=== PATIENT | female | born 1960 | race Asian ===

== ENCOUNTER 2018-03-20 10:16 | Emergency (ER) | payer MEDICAID ==
[~2018-03-20] VITALS: Ht 139.7 cm; Wt 47.6 kg
[2018-03-20 10:21] VITALS: BP_SYST 123
[2018-03-20] MEDS ORDERED: MORPHINE 2 MG/ML INJ. SYRINGE IM ONE (10:45)
[2018-03-20] MEDS ORDERED: ONDANSETRON 4 MG ODT TAB PO ONE (10:45)
[2018-03-20 11:20] VITALS: BP_SYST 124
== END 2018-03-20 11:20 | disposition home or self-care (01) ==
LOC: SED 10:16
DX: M06.9 Rheumatoid arthritis, unspecified (principal)
CPT/HCPCS: 96372; 99283; J2270; Q0162

== ENCOUNTER 2018-07-19 15:31 | Emergency (ER) | payer MEDICAID ==
[~2018-07-19] VITALS: Ht 147.3 cm; Wt 49.9 kg
[2018-07-19 15:35] VITALS: BP_SYST 117
--- NOTE | 2018-07-19 15:38 | NUR ---
Patient triaged and placed in waiting room. VSS and patient appears in no acute distress at this time. Accompanied by NEPHEW, awaiting available bed, and MD notified of need for MSE.
--- NOTE | 2018-07-19 16:31 | NUR ---
PT BEING EVALUATED BY AYLIN NULL IN TRIAGE ROOM.
--- NOTE | 2018-07-19 16:40 | NUR ---
Pt AAOx4, non-armenian speaking, presents to ED c/o bilateral pain, swelling, and increased tear production to bilateral eyes x 2 weeks. Pt also c/o swelling to L elbow r/t rheumatoid arthritis. No other injuries/complaints per pt/noted. Will continue to monitor.
[2018-07-19] MEDS ORDERED: KETOROLAC TROMETHAMINE 30 MG VIAL IM ONE (16:45)
--- NOTE | 2018-07-19 17:15 | NUR ---
Medication administered. Pt tolerated well. No adverse reactions noted.
[2018-07-19 17:59] VITALS: BP_SYST 114
--- NOTE | 2018-07-19 17:59 | NUR ---
Patient given written and verbal discharge instructions and verbalizes understanding. ER CHILDR[facility] PRO[facility] COORDINATOR Ana Maria discussed with patient the results and treatment provided. Patient in stable condition. ID arm band removed. Rx of Loratadine, Patanol given. Patient educated on pain management and to follow up with PMD. Pain Scale 0. Opportunity for questions provided and answered. Medication side effect fact sheet provided.
== END 2018-07-19 17:59 | disposition home or self-care (01) ==
LOC: SED 15:31
DX: H10.13 Acute atopic conjunctivitis, bilateral (principal); M06.9 Rheumatoid arthritis, unspecified
CPT/HCPCS: 96372; 99283; J1885

== ENCOUNTER 2018-08-30 21:50 | Emergency (ER) | payer MEDICAID ==
[~2018-08-30] VITALS: Ht 157.5 cm; Wt 46.3 kg
[2018-08-30 21:55] VITALS: BP_SYST 137
[2018-08-30 22:37] LABS: BASOPHILS % (AUTO) 0.4 % (0.0-2.0); EOSINOPHILS % (AUTO) 0.4 % (0.0-4.0); HEMATOCRIT 35.1 % (36-48); HEMOGLOBIN 11.6 g/dL (12.0-16.0); LYMPHOCYTES # (AUTO) 0.7 K/uL (1.0-5.5); LYMPHOCYTES % (AUTO) 34.4 % (20.5-51.5); MEAN CORPUSCULAR HEMOGLOBIN 29 pg (27-31); MEAN CORPUSCULAR HGB CONC 33 % (32-36); MEAN CORPUSCULAR VOLUME 86 fL (79.0-98.0); MONOCYTES # (AUTO) 0.3 K/uL (0.0-1.0); MONOCYTES % (AUTO) 14.2 % (1.7-9.3); PLATELET COUNT (AUTO) 307 K/uL (130-430); RED BLOOD CELL COUNT(AUTO) 4.08 MIL/uL (4.2-6.2); RED CELL DISTRIBUTION WIDTH 13.7 % (9.0-15.0)
[2018-08-30 22:46] LABS: CREATININE 0.7 mg/dL (0.55-1.30); POTASSIUM 3.5 mmol/L (3.5-5.1)
[2018-08-30 22:52] LABS: ALBUMIN 2.7 g/dL (3.4-4.8); INR 0.9 (0.8-1.2); PROTHROMBIN TIME 9.6 SECS (9.5-12.5); TOTAL BILIRUBIN 0.3 mg/dL (0.0-1.0)
[2018-08-30 23:19] LABS: NEUTROPHILS % (AUTO) 50.6 % (40.0-70.0)
[2018-08-31] MEDS ORDERED: ENOXAPARIN SODIUM 60 MG/0.6 ML SYRINGE SUBCUT ONE
[2018-08-31 03:26] VITALS: BP_SYST 132
== END 2018-08-31 03:26 | disposition short-term general hospital (02) ==
LOC: SED 21:50
DX: I82.432 Acute embolism and thrombosis of left popliteal vein (principal)
CPT/HCPCS: 36415; 80053; 85025; 85379; 85610; 85730; 93971; 96372; 99285; J1650

== ENCOUNTER 2020-02-27 09:28 | Emergency (ER) | payer MEDICAID, SELFPAY ==
[~2020-02-27] VITALS: Ht 152.4 cm; Wt 46.3 kg
[2020-02-27 09:32] VITALS: BP_SYST 115
[2020-02-27 09:47] VITALS: BP_SYST 115
== END 2020-02-27 10:01 | disposition home or self-care (01) ==
LOC: SED 09:28
DX: J32.9 Chronic sinusitis, unspecified (principal); B97.89 Other viral agents as the cause of diseases classified elsewhere; Z20.828 Contact with and (suspected) exposure to other viral communicable diseases
CPT/HCPCS: 99283; U0003; C9803-CS

== ENCOUNTER 2020-12-21 10:23 | Emergency (ER) | payer MEDICAID, SELFPAY ==
[~2020-12-21] VITALS: Ht 154.9 cm; Wt 45.4 kg
[2020-12-21 11:12] VITALS: BP_SYST 132
[2020-12-21] MEDS ORDERED: TETRACAINE HCL/PF 0.5% OPHTHALMIC DROPS 4 ML OP ONE (11:45)
[2020-12-21] MEDS ORDERED: FLUORESCEIN SODIUM 1 MG OPHTHALMIC STRIP OP ONE (11:45)
[2020-12-21] MEDS ORDERED: OFLO5DRO6 EACH EYE (12:43)
[2020-12-21 13:07] VITALS: BP_SYST 132
== END 2020-12-21 13:08 | disposition home or self-care (01) ==
LOC: SED 10:23
DX: H10.33 Unspecified acute conjunctivitis, bilateral (principal)
CPT/HCPCS: 99283

== ENCOUNTER 2023-03-01 21:56 | Emergency (ER) | payer MEDICAID ==
[~2023-03-01] VITALS: Ht 149.9 cm; Wt 47.6 kg
[~2023-03-01 21:56] MED LIST: OFLO5DRO6 EACH EYE
[2023-03-01 22:10] VITALS: BP_SYST 115; PULSE 80; RESP 18; TEMP 98.3
== END 2023-03-01 23:38 | disposition home or self-care (01) ==
LOC: SED 21:56
DX: H54.7 Unspecified visual loss (principal); I10 Essential (primary) hypertension; E11.9 Type 2 diabetes mellitus without complications; Z79.899 Other long term (current) drug therapy
CPT/HCPCS: 99281

== ENCOUNTER 2023-08-08 10:17 | Inpatient (IN) | payer MEDICAID ==
[~2023-08-08] VITALS: Ht 149.9 cm; Wt 43.5 kg
[2023-08-08 10:28] VITALS: BP_SYST 116; PULSE 105; RESP 18; TEMP 98.6
[2023-08-08 11:06] LABS: HEMATOCRIT 29.9 % (36-48); MEAN CORPUSCULAR HEMOGLOBIN 27 pg (27-31); MEAN CORPUSCULAR HGB CONC 33 % (32-36); MEAN CORPUSCULAR VOLUME 82 fL (79.0-98.0); PLATELET COUNT (AUTO) 168 K/uL (130-430); RED BLOOD CELL COUNT(AUTO) 3.65 MIL/uL (4.2-6.2); RED CELL DISTRIBUTION WIDTH 17.7 % (9.0-15.0)
[2023-08-08 11:09] LABS: CALCIUM 8.4 mg/dL (8.4-11.0); CREATININE 0.67 mg/dL (0.55-1.30); POTASSIUM 3.7 mmol/L (3.5-5.1)
[2023-08-08] MEDS: QUEtiapine FUMARATE 25 MG TABLET PO SCH (11:15)
[2023-08-08 11:16] LABS: WHITE BLOOD COUNT (AUTO) 1.1 K/uL (4.8-10.8)
[2023-08-08 12:00] LABS: ATYPICAL LYMPHOCYTES % 17 % (0-0); BAND % (MANUAL) 2 % (0-6); LYMPHOCYTES % (MANUAL) 46 % (20-46)
[2023-08-08 12:01] LABS: ANISOCYTOSIS 1+; BASOPHILS % (MANUAL) 0 % (0-2); EOSINOPHILS % (MANUAL) 5 % (0-7); HYPOCHROMASIA 1+; MONOCYTES % (MANUAL) 15 % (0-11); PLATELET ESTIMATE ADEQUATE (ADEQUATE); SMUDGE CELLS FEW
[2023-08-08 12:02] LABS: ROULEAU 1+
[2023-08-08] MEDS: PIPERACILLIN/TAZOBACTAM 2.25 GM in NS 50 ML IV ONE (12:07)
[2023-08-08] MEDS ORDERED: PIPERACILLIN/TAZOBACTAM 2.25 GM VIAL IV ONE (12:08)
[2023-08-08] MEDS ORDERED: CLOP75TA32 PO (12:15)
[2023-08-08] MEDS ORDERED: PHEDM120 PO (12:15)
[2023-08-08] MEDS ORDERED: ROSU20TA73 PO (12:15)
[2023-08-08] MEDS ORDERED: ASPI-1393 PO (12:15)
[2023-08-08] MEDS ORDERED: ACETAMINOPHEN 500 MG TABLET PO PRN (13:30)
[2023-08-08] MEDS: ACETAMINOPHEN 500 MG TABLET PO PRN (13:46)
[2023-08-08 14:49] LABS: BILIRUBIN,URINE NEGATIVE (NEGATIVE); CLARITY/URINE CLEAR (CLEAR); COLOR,URINE YELLOW (YELLOW); GLUCOSE,URINE NEGATIVE (NEGATIVE); KETONES,URINE NEGATIVE (NEGATIVE); LEUKOCYTE ESTERASE ,URINE NEGATIVE (NEGATIVE); NITRITE, URINE NEGATIVE (NEGATIVE); PH,URINE 6.5 (5.0-8.0); PROTEIN URINE NEGATIVE (NEGATIVE); UROBILINOGEN,URINE 0.2 (0.2-1.0)
[2023-08-08 14:53] LABS: BLOOD, URINE TRACE (NEGATIVE)
[2023-08-08 15:07] LABS: BACTERIA,URINE RARE /HPF (None Seen); MUCUS,URINE 1+ /LPF (None Seen); WBC,URINE 0-3 /HPF (0-3)
[2023-08-08] MEDS: NACL 0.9% 1,000 ML IV ONE ×2 (15:16→15:57)
[2023-08-08] MEDS: IBUPROFEN 400 MG TABLET PO PRN (16:18)
[2023-08-08] MEDS: NACL 0.9% 1,000 ML IV SCH (18:45)
[2023-08-08] MEDS: PIPERACILLIN/TAZO 3.375/DEX-IS 50 ML IV SCH (20:17)
[2023-08-08] MEDS: VANCOMYCIN HCL 500 MG in NS 100 ML IV SCH (21:00)
[2023-08-08] MEDS ORDERED: IPRATROPIUM/ALBUTEROL SULFATE 3 ML AMPUL.NEB (DUONEB) INH PRN (21:45)
[2023-08-08] MEDS ORDERED: IPRATROPIUM/ALBUTEROL SULFATE 3 ML AMPUL.NEB (DUONEB) ONE (21:48)
[2023-08-08] MEDS ORDERED: NOREPINEPHRINE 4 MG/4 ML VIAL IV ONE (22:26)
[2023-08-08] MEDS: NOREPINEPHRINE BITARTRATE 4 MG in D5W 246 ML IV PRN (23:58)
[2023-08-09] MEDS: HEPARIN SODIUM,PORCINE 5,000 UNITS/ML VIAL SUBCUT SCH
[2023-08-09] MEDS: ACETAMINOPHEN 500 MG TABLET PO PRN (00:01)
[2023-08-09 00:24] LABS: INR 1.2 (0.8-1.2)
[2023-08-09] MEDS ORDERED: HEPARIN SODIUM,PORCINE 5,000 UNITS/ML VIAL ONE ×2 (00:49→22:22)
[2023-08-09 04:20] LABS: BASOPHILS % (AUTO) 0.2 % (0.0-2.0); EOSINOPHILS % (AUTO) 0.6 % (0.0-4.0); HEMATOCRIT 32.8 % (36-48); HEMOGLOBIN 10.8 g/dL (12.0-16.0); LYMPHOCYTES # (AUTO) 0.4 K/uL (1.0-5.5); MEAN CORPUSCULAR HEMOGLOBIN 27 pg (27-31); MEAN CORPUSCULAR HGB CONC 33 % (32-36); MEAN CORPUSCULAR VOLUME 81 fL (79.0-98.0); MONOCYTES # (AUTO) 0.4 K/uL (0.0-1.0); MONOCYTES % (AUTO) 40.9 % (1.7-9.3); NEUTROPHILS % (AUTO) 17.3 % (40.0-70.0); PLATELET COUNT (AUTO) 215 K/uL (130-430); RED BLOOD CELL COUNT(AUTO) 4.05 MIL/uL (4.2-6.2); RED CELL DISTRIBUTION WIDTH 17.8 % (9.0-15.0)
[2023-08-09 04:22] LABS: NEUTROPHILS # (AUTO) 0.2 K/uL (1.8-7.7)
[2023-08-09 04:31] LABS: ALBUMIN 2.1 g/dL (3.4-4.8); CALCIUM 7.5 mg/dL (8.4-11.0); CREATININE 0.88 mg/dL (0.55-1.30); PHOSPHORUS 2.7 mg/dL (2.7-4.5); POTASSIUM 3.2 mmol/L (3.5-5.1); TOTAL BILIRUBIN 0.4 mg/dL (0.0-1.0); TOTAL PROTEIN, SERUM 6.3 g/dL (6.4-8.3)
[2023-08-09 06:59] VITALS: PULSE 70; O2SAT 98
[2023-08-09] MEDS: CEFEPIME 2 GM in D5W 100 ML IV SCH (09:02)
[2023-08-09 09:45] LABS: INR 1.1 (0.8-1.2); PROTHROMBIN TIME 11.3 SECS (9.5-12.5)
[2023-08-09] MEDS ORDERED: ACETAMINOPHEN 500 MG TABLET ONE (13:41)
[2023-08-09] MEDS ORDERED: ACETAMINOPHEN 500 MG TABLET PO PRN (15:30)
[2023-08-09] MEDS: QUEtiapine FUMARATE 25 MG TABLET ONE (22:40)
[2023-08-10] MEDS ORDERED: ACETAMINOPHEN 500 MG TABLET ONE ×2 (03:02→14:46)
[2023-08-10 08:29] LABS: BASOPHILS % (AUTO) 0.5 % (0.0-2.0); EOSINOPHILS # (AUTO) 0.1 K/uL (0.0-0.4); EOSINOPHILS % (AUTO) 6.5 % (0.0-4.0); HEMATOCRIT 25.1 % (36-48); HEMOGLOBIN 8.2 g/dL (12.0-16.0); LYMPHOCYTES # (AUTO) 0.6 K/uL (1.0-5.5); MEAN CORPUSCULAR HEMOGLOBIN 28 pg (27-31); MEAN CORPUSCULAR HGB CONC 33 % (32-36); MEAN CORPUSCULAR VOLUME 84 fL (79.0-98.0); MONOCYTES # (AUTO) 0.2 K/uL (0.0-1.0); MONOCYTES % (AUTO) 18.1 % (1.7-9.3); PLATELET COUNT (AUTO) 129 K/uL (130-430); RED BLOOD CELL COUNT(AUTO) 2.98 MIL/uL (4.2-6.2); RED CELL DISTRIBUTION WIDTH 18.2 % (9.0-15.0)
[2023-08-10 08:32] LABS: ALBUMIN 1.7 g/dL (3.4-4.8); CREATININE 0.62 mg/dL (0.55-1.30); PHOSPHORUS 2.1 mg/dL (2.7-4.5); TOTAL BILIRUBIN 0.3 mg/dL (0.0-1.0); TOTAL PROTEIN, SERUM 5.6 g/dL (6.4-8.3)
[2023-08-10 08:42] LABS: CALCIUM 6.4 mg/dL (8.4-11.0); POTASSIUM 2.7 mmol/L (3.5-5.1)
[2023-08-10 08:45] LABS: WHITE BLOOD COUNT (AUTO) 0.9 K/uL (4.8-10.8)
[2023-08-10 08:46] LABS: NEUTROPHILS % (AUTO) 4.9 % (40.0-70.0)
[2023-08-10 08:55] LABS: TOTAL IRON BIND. CAPACITY 155 ug/dL (250-450)
[2023-08-10] MEDS: ASPIRIN 81 MG TABLET(ECOTRIN) PO SCH (09:09)
[2023-08-10] MEDS: CLOPIDOGREL BISULFATE 75 MG TABLET PO SCH (09:09)
[2023-08-10 11:06] LABS: ANTI NUCLEAR AB WITH REFLEX Negative (Negative)
[2023-08-10 13:24] LABS: COVID19 ANTIGEN SOFIA FIA NEGATIVE (NEGATIVE); INFLUENZA TYPE A Negative (NEGATIVE)
[2023-08-10 13:28] LABS: INFLUENZA TYPE B POSITIVE (NEGATIVE)
[2023-08-10] MEDS ORDERED: OSELTAMIVIR PHOSPHATE 75 MG CAPSULE ONE ×2 (14:46→20:41)
[2023-08-10] MEDS ORDERED: IBUPROFEN 400 MG TABLET ONE (14:47)
[2023-08-10] MEDS: OSELTAMIVIR PHOSPHATE 75 MG CAPSULE PO ONE (14:49)
[2023-08-10] MEDS: TBO-FILGRASTIM 300 MCG/0.5 ML SYRINGE SUBCUT SCH (17:12)
[2023-08-10] MEDS ORDERED: CEFEPIME 2 GM/VIAL (MAXIPIME) ONE (20:28)
[2023-08-10] MEDS ORDERED: VANCOMYCIN HCL 500 MG/VIAL IV ONE (20:28)
[2023-08-10] MEDS: OSELTAMIVIR PHOSPHATE 75 MG CAPSULE PO SCH (20:42)
[2023-08-10] MEDS ORDERED: IBUPROFEN 400 MG TABLET PO PRN (20:45)
[2023-08-11] MEDS ORDERED: ACETAMINOPHEN 500 MG TABLET ONE ×2 (01:33→17:18)
[2023-08-11] MEDS ORDERED: IBUPROFEN 400 MG TABLET ONE (01:33)
[2023-08-11] MEDS: ACETAMINOPHEN 650 MG SUPP.RECT RC ONE (02:45)
[2023-08-11 05:20] LABS: HEMATOCRIT 25.4 % (36-48); HEMOGLOBIN 8.5 g/dL (12.0-16.0); MEAN CORPUSCULAR HEMOGLOBIN 27 pg (27-31); MEAN CORPUSCULAR HGB CONC 34 % (32-36); MEAN CORPUSCULAR VOLUME 82 fL (79.0-98.0); PLATELET COUNT (AUTO) 135 K/uL (130-430); RED BLOOD CELL COUNT(AUTO) 3.11 MIL/uL (4.2-6.2); RED CELL DISTRIBUTION WIDTH 17.8 % (9.0-15.0)
[2023-08-11 08:00] LABS: WHITE BLOOD COUNT (AUTO) 1.3 K/uL (4.8-10.8)
[2023-08-11 08:06] LABS: FOLATE (FOLIC ACID) 18.7 ng/mL (>3.0)
[2023-08-11 09:43] VITALS: O2SAT 99
[2023-08-11] MEDS: POTASSIUM CHLORIDE 20 MEQ TABLET.ER PO ONE (10:52)
[2023-08-11] MEDS: FERROUS SULFATE 325 MG TABLET.DR PO ONE (10:53)
[2023-08-11 12:07] LABS: RA LATEX TURBID 517.7 IU/mL (<14.0)
[2023-08-11 12:27] LABS: ANISOCYTOSIS 1+; BAND % (MANUAL) 20 % (0-6); BASOPHILS % (MANUAL) 0 % (0-2); EOSINOPHILS % (MANUAL) 5 % (0-7); LYMPHOCYTES % (MANUAL) 42 % (20-46); METAMYELOCYTES % 3 % (0-0); MONOCYTES % (MANUAL) 11 % (0-11); PLATELET ESTIMATE ADEQUATE (ADEQUATE)
[2023-08-11 12:29] LABS: EOSINOPHILS # (AUTO) 0.1 K/uL (0.0-0.4); LYMPHOCYTES # (AUTO) 0.5 K/uL (1.0-5.5); MONOCYTES # (AUTO) 0.2 K/uL (0.0-1.0); NEUTROPHILS # (AUTO) 0.5 K/uL (1.8-7.7)
[2023-08-11] MEDS ORDERED: OSELTAMIVIR PHOSPHATE 75 MG CAPSULE ONE (21:34)
[2023-08-11] MEDS: VANCOMYCIN HCL 750 MG in NS 250 ML IV SCH (21:34)
[2023-08-11] MEDS: FERROUS SULFATE 325 MG TABLET.DR PO SCH (21:34)
[2023-08-11 23:00] VITALS: BP_SYST 99; PULSE 103; RESP 16; TEMP 100.3; O2SAT 100
[2023-08-12] VITALS (25 sets, daily range): BP systolic 87–177; PULSE 83–110; RESP 13–28; TEMP 97.8–100; O2SAT 97–100
[2023-08-12] MEDS: NOREPINEPHRINE 4 MG/4 ML VIAL IV ONE (04:09)
[2023-08-12 04:51] LABS: EOSINOPHILS # (AUTO) 0.1 K/uL (0.0-0.4); EOSINOPHILS % (AUTO) 1.2 % (0.0-4.0); HEMATOCRIT 27.2 % (36-48); HEMOGLOBIN 9.1 g/dL (12.0-16.0); LYMPHOCYTES # (AUTO) 0.9 K/uL (1.0-5.5); LYMPHOCYTES % (AUTO) 13.1 % (20.5-51.5); MEAN CORPUSCULAR HEMOGLOBIN 27 pg (27-31); MEAN CORPUSCULAR HGB CONC 33 % (32-36); MEAN CORPUSCULAR VOLUME 80 fL (79.0-98.0); MONOCYTES # (AUTO) 0.2 K/uL (0.0-1.0); MONOCYTES % (AUTO) 3.8 % (1.7-9.3); NEUTROPHILS # (AUTO) 5.3 K/uL (1.8-7.7); NEUTROPHILS % (AUTO) 81.9 % (40.0-70.0); PLATELET COUNT (AUTO) 178 K/uL (130-430); RED CELL DISTRIBUTION WIDTH 17.9 % (9.0-15.0)
[2023-08-12 05:09] LABS: CALCIUM 7.5 mg/dL (8.4-11.0); CREATININE 0.66 mg/dL (0.55-1.30)
[2023-08-12 06:01] LABS: POTASSIUM 2.5 mmol/L (3.5-5.1)
[2023-08-12 07:41] LABS: WHITE BLOOD COUNT (AUTO) 6.5 K/uL (4.8-10.8)
[2023-08-12] MEDS: POTASSIUM CHLORIDE 20 MEQ/PKT PACKET ONE (07:44)
[2023-08-12] MEDS: POTASSIUM CHLORIDE 20 MEQ TABLET.ER PO SCH (08:09)
[2023-08-12] MEDS: POTASSIUM CHLORIDE 20 MEQ/PKT PACKET PO ONE ×2 (08:37→09:58)
[2023-08-12] MEDS: NOREPINEPHR 8 MG/250 mL NS 250 ML IV PRN (13:06)
[2023-08-13] VITALS (25 sets, daily range): BP systolic 77–135; PULSE 81–114; RESP 15–30; TEMP 98.3–100.4; O2SAT 95–100
[2023-08-13 05:51] LABS: BASOPHILS % (AUTO) 0.2 % (0.0-2.0); EOSINOPHILS # (AUTO) 0.1 K/uL (0.0-0.4); EOSINOPHILS % (AUTO) 1.6 % (0.0-4.0); HEMATOCRIT 24.8 % (36-48); HEMOGLOBIN 8.4 g/dL (12.0-16.0); LYMPHOCYTES # (AUTO) 0.8 K/uL (1.0-5.5); LYMPHOCYTES % (AUTO) 13.9 % (20.5-51.5); MEAN CORPUSCULAR HEMOGLOBIN 27 pg (27-31); MEAN CORPUSCULAR HGB CONC 34 % (32-36); MEAN CORPUSCULAR VOLUME 80 fL (79.0-98.0); MONOCYTES # (AUTO) 0.3 K/uL (0.0-1.0); MONOCYTES % (AUTO) 4.7 % (1.7-9.3); NEUTROPHILS # (AUTO) 4.5 K/uL (1.8-7.7); NEUTROPHILS % (AUTO) 79.6 % (40.0-70.0); PLATELET COUNT (AUTO) 152 K/uL (130-430); RED BLOOD CELL COUNT(AUTO) 3.11 MIL/uL (4.2-6.2); RED CELL DISTRIBUTION WIDTH 17.6 % (9.0-15.0); WHITE BLOOD COUNT (AUTO) 5.6 K/uL (4.8-10.8)
[2023-08-13 05:54] LABS: CALCIUM 7.2 mg/dL (8.4-11.0); CREATININE 0.59 mg/dL (0.55-1.30)
[2023-08-13 06:01] LABS: POTASSIUM 2.3 mmol/L (3.5-5.1)
[2023-08-13] MEDS: POTASSIUM CHLORIDE 20 MEQ TABLET.ER PO ONE (07:07)
[2023-08-13] MEDS: POTASSIUM CHLORIDE 20 MEQ TABLET.ER PO SCH (09:00)
[2023-08-13] MEDS: POTASSIUM CHLORIDE 40 MEQ, LIDOCAINE JECT 2% PF 100 MG 50 MG in NS 250 ML IV ONE (10:21)
[2023-08-13] MEDS: MAGNESIUM SULFATE 50 ML IV ONE (13:59)
[2023-08-13] MEDS: VANCOMYCIN HCL 1,000 MG in NS 250 ML IV SCH (20:36)
[2023-08-13] MEDS: NOREPINEPHR 16 MG/250 mL NS 250 ML IV PRN (21:19)
[2023-08-14] VITALS (25 sets, daily range): BP systolic 86–157; PULSE 92–131; RESP 15–37; TEMP 97.8–99.3; O2SAT 98–100
[2023-08-14 05:56] LABS: BASOPHILS % (AUTO) 0.1 % (0.0-2.0); EOSINOPHILS # (AUTO) 0.1 K/uL (0.0-0.4); EOSINOPHILS % (AUTO) 2.4 % (0.0-4.0); HEMATOCRIT 27.9 % (36-48); HEMOGLOBIN 9.3 g/dL (12.0-16.0); LYMPHOCYTES # (AUTO) 0.8 K/uL (1.0-5.5); LYMPHOCYTES % (AUTO) 20.4 % (20.5-51.5); MEAN CORPUSCULAR HEMOGLOBIN 27 pg (27-31); MEAN CORPUSCULAR HGB CONC 33 % (32-36); MEAN CORPUSCULAR VOLUME 80 fL (79.0-98.0); MONOCYTES # (AUTO) 0.3 K/uL (0.0-1.0); MONOCYTES % (AUTO) 7.1 % (1.7-9.3); NEUTROPHILS # (AUTO) 2.8 K/uL (1.8-7.7); PLATELET COUNT (AUTO) 153 K/uL (130-430); RED CELL DISTRIBUTION WIDTH 17.8 % (9.0-15.0)
[2023-08-14 06:01] LABS: CALCIUM 7.3 mg/dL (8.4-11.0); CREATININE 0.64 mg/dL (0.55-1.30)
[2023-08-14] MEDS: QUEtiapine FUMARATE 25 MG TABLET PO SCH (20:47)
[2023-08-14] MEDS: MUPIROCIN 2% TOPICAL OINTMENT 22 GM TP SCH (20:48)
[2023-08-15] VITALS (25 sets, daily range): BP systolic 86–137; PULSE 88–119; RESP 13–30; TEMP 95.6–99.3; O2SAT 99–100
[2023-08-15 06:44] LABS: BASOPHILS % (AUTO) 0.2 % (0.0-2.0); EOSINOPHILS # (AUTO) 0.1 K/uL (0.0-0.4); EOSINOPHILS % (AUTO) 3.1 % (0.0-4.0); HEMATOCRIT 24.4 % (36-48); HEMOGLOBIN 8.3 g/dL (12.0-16.0); LYMPHOCYTES # (AUTO) 0.9 K/uL (1.0-5.5); LYMPHOCYTES % (AUTO) 28.1 % (20.5-51.5); MEAN CORPUSCULAR HEMOGLOBIN 27 pg (27-31); MEAN CORPUSCULAR HGB CONC 34 % (32-36); MEAN CORPUSCULAR VOLUME 80 fL (79.0-98.0); MONOCYTES # (AUTO) 0.3 K/uL (0.0-1.0); MONOCYTES % (AUTO) 7.9 % (1.7-9.3); NEUTROPHILS % (AUTO) 60.7 % (40.0-70.0); PLATELET COUNT (AUTO) 98 K/uL (130-430); RED BLOOD CELL COUNT(AUTO) 3.04 MIL/uL (4.2-6.2); RED CELL DISTRIBUTION WIDTH 17.9 % (9.0-15.0); WHITE BLOOD COUNT (AUTO) 3.3 K/uL (4.8-10.8)
[2023-08-15 06:59] LABS: CALCIUM 7.4 mg/dL (8.4-11.0); CREATININE 0.61 mg/dL (0.55-1.30)
[2023-08-15 07:06] LABS: POTASSIUM 2.9 mmol/L (3.5-5.1)
[2023-08-15] MEDS: DOXYCYCLINE HYCLATE 100 MG CAPSULE PO SCH (08:59)
[2023-08-15] MEDS: MIDODRINE HCL 5 MG TABLET (PROAMATINE) PO SCH (11:37)
[2023-08-16] VITALS (24 sets, daily range): BP systolic 80–136; PULSE 81–109; RESP 18–38; TEMP 98.2–101; O2SAT 99–100
[2023-08-16 07:03] LABS: BASOPHILS % (AUTO) 0.2 % (0.0-2.0); EOSINOPHILS # (AUTO) 0.1 K/uL (0.0-0.4); EOSINOPHILS % (AUTO) 3.5 % (0.0-4.0); HEMATOCRIT 25.4 % (36-48); HEMOGLOBIN 8.6 g/dL (12.0-16.0); LYMPHOCYTES # (AUTO) 0.9 K/uL (1.0-5.5); LYMPHOCYTES % (AUTO) 36.6 % (20.5-51.5); MEAN CORPUSCULAR HEMOGLOBIN 27 pg (27-31); MEAN CORPUSCULAR HGB CONC 34 % (32-36); MEAN CORPUSCULAR VOLUME 81 fL (79.0-98.0); MONOCYTES # (AUTO) 0.2 K/uL (0.0-1.0); MONOCYTES % (AUTO) 7.8 % (1.7-9.3); NEUTROPHILS # (AUTO) 1.3 K/uL (1.8-7.7); NEUTROPHILS % (AUTO) 51.9 % (40.0-70.0); PLATELET COUNT (AUTO) 88 K/uL (130-430); RED BLOOD CELL COUNT(AUTO) 3.15 MIL/uL (4.2-6.2); RED CELL DISTRIBUTION WIDTH 17.8 % (9.0-15.0); WHITE BLOOD COUNT (AUTO) 2.4 K/uL (4.8-10.8)
[2023-08-16 07:23] LABS: CALCIUM 7.4 mg/dL (8.4-11.0); CREATININE 0.45 mg/dL (0.55-1.30); POTASSIUM 3.2 mmol/L (3.5-5.1)
[2023-08-16] MEDS: CALCIUM CARBONATE 500 MG/ TAB.CHEW PO ONE (10:51)
[2023-08-16] MEDS: SODIUM CHLORIDE 1,000 MG TABLET PO ONE (10:52)
[2023-08-16] MEDS: CALCIUM CARBONATE 500 MG/ TAB.CHEW PO SCH (20:23)
[2023-08-17] VITALS (22 sets, daily range): BP systolic 90–108; PULSE 90–103; RESP 17–28; TEMP 98.5–100; O2SAT 98–100
[2023-08-17 06:09] LABS: BASOPHILS % (AUTO) 0.6 % (0.0-2.0); EOSINOPHILS # (AUTO) 0.1 K/uL (0.0-0.4); EOSINOPHILS % (AUTO) 3.4 % (0.0-4.0); HEMOGLOBIN 7.3 g/dL (12.0-16.0); LYMPHOCYTES # (AUTO) 0.6 K/uL (1.0-5.5); LYMPHOCYTES % (AUTO) 39.3 % (20.5-51.5); MEAN CORPUSCULAR HEMOGLOBIN 27 pg (27-31); MEAN CORPUSCULAR HGB CONC 34 % (32-36); MEAN CORPUSCULAR VOLUME 80 fL (79.0-98.0); MONOCYTES # (AUTO) 0.1 K/uL (0.0-1.0); MONOCYTES % (AUTO) 6.8 % (1.7-9.3); NEUTROPHILS % (AUTO) 49.9 % (40.0-70.0); PLATELET COUNT (AUTO) 72 K/uL (130-430); RED BLOOD CELL COUNT(AUTO) 2.69 MIL/uL (4.2-6.2); RED CELL DISTRIBUTION WIDTH 17.7 % (9.0-15.0)
[2023-08-17 06:51] LABS: CREATININE 0.4 mg/dL (0.55-1.30); POTASSIUM 3.1 mmol/L (3.5-5.1)
[2023-08-17 07:16] LABS: CALCIUM 6.8 mg/dL (8.4-11.0)
[2023-08-17 07:57] LABS: HEMATOCRIT 21.4 % (36-48); WHITE BLOOD COUNT (AUTO) 1.5 K/uL (4.8-10.8)
[2023-08-17 07:58] LABS: NEUTROPHILS # (AUTO) 0.8 K/uL (1.8-7.7)
[2023-08-17] MEDS: POTASSIUM CHLORIDE 20 MEQ TABLET.ER PO ONE (10:46)
[2023-08-17] MEDS: POTASSIUM CHLORIDE 20 MEQ TABLET.ER PO SCH (15:00)
[2023-08-17] MEDS: TBO-FILGRASTIM 300 MCG/0.5 ML SYRINGE SUBCUT SCH (17:34)
[2023-08-17] MEDS: SODIUM CHLORIDE 1,000 MG TABLET PO SCH (20:36)
[2023-08-18] VITALS: O2SAT 100
[2023-08-18 05:29] LABS: CALCIUM 7.3 mg/dL (8.4-11.0); CREATININE 0.41 mg/dL (0.55-1.30); POTASSIUM 3.3 mmol/L (3.5-5.1)
[2023-08-18 08:35] VITALS: BP_SYST 92; PULSE 95; RESP 18; TEMP 100.2; O2SAT 100; O2SAT 98
[2023-08-18 08:55] LABS: BASOPHILS % (AUTO) 0.4 % (0.0-2.0); EOSINOPHILS # (AUTO) 0.1 K/uL (0.0-0.4); EOSINOPHILS % (AUTO) 2.7 % (0.0-4.0); HEMATOCRIT 23.5 % (36-48); HEMOGLOBIN 7.8 g/dL (12.0-16.0); LYMPHOCYTES # (AUTO) 0.7 K/uL (1.0-5.5); LYMPHOCYTES % (AUTO) 38.9 % (20.5-51.5); MEAN CORPUSCULAR HEMOGLOBIN 26 pg (27-31); MEAN CORPUSCULAR HGB CONC 33 % (32-36); MEAN CORPUSCULAR VOLUME 79 fL (79.0-98.0); MONOCYTES # (AUTO) 0.1 K/uL (0.0-1.0); MONOCYTES % (AUTO) 5.6 % (1.7-9.3); NEUTROPHILS % (AUTO) 52.4 % (40.0-70.0); PLATELET COUNT (AUTO) 76 K/uL (130-430); RED BLOOD CELL COUNT(AUTO) 2.98 MIL/uL (4.2-6.2); RED CELL DISTRIBUTION WIDTH 17.2 % (9.0-15.0)
[2023-08-18] MEDS: POTASSIUM CHLORIDE 20 MEQ TABLET.ER PO ONE (09:00)
[2023-08-18 09:11] LABS: WHITE BLOOD COUNT (AUTO) 1.9 K/uL (4.8-10.8)
[2023-08-18 10:44] VITALS: BP_SYST 92; PULSE 95; O2SAT 100
[2023-08-18] MEDS: HYDROCORTISONE SOD SUCC 100 MG/2 ML VIAL IVP ONE (10:49)
[2023-08-18 11:22] VITALS: BP_SYST 101; PULSE 79; RESP 16; TEMP 98.7; O2SAT 97
[2023-08-18] MEDS: FLUDROCORTISONE ACETATE 0.1 MG TABLET( FLORINEF) PO ONE (15:26)
[2023-08-18] MEDS: LEVOTHYROXINE SODIUM 0.025 MG TABLET PO ONE (15:26)
[2023-08-18] MEDS: HYDROCORTISONE SOD SUCC 100 MG/2 ML VIAL IVP SCH (15:27)
[2023-08-18 15:38] VITALS: BP_SYST 105; PULSE 89; RESP 16; TEMP 97.1; O2SAT 96
[2023-08-18] MEDS: SODIUM CHLORIDE 3% *HI-ALERT* 100 ML IV ONE (19:20)
[2023-08-18] MEDS: CEFEPIME 2 GM in D5W 100 ML IV SCH (21:36)
[2023-08-19] VITALS (7 sets, daily range): BP systolic 120–125; PULSE 82–102; RESP 16–17; TEMP 97.5–98.6; O2SAT 96–100
[2023-08-19] MEDS: D5NS 1,000 ML IV SCH (01:15)
[2023-08-19 06:19] LABS: HEMATOCRIT 24.7 % (36-48); HEMOGLOBIN 8.2 g/dL (12.0-16.0); LYMPHOCYTES # (AUTO) 0.3 K/uL (1.0-5.5); LYMPHOCYTES % (AUTO) 2.6 % (20.5-51.5); MEAN CORPUSCULAR HEMOGLOBIN 26 pg (27-31); MEAN CORPUSCULAR HGB CONC 33 % (32-36); MEAN CORPUSCULAR VOLUME 78 fL (79.0-98.0); MONOCYTES # (AUTO) 0.3 K/uL (0.0-1.0); MONOCYTES % (AUTO) 2.1 % (1.7-9.3); NEUTROPHILS # (AUTO) 11.6 K/uL (1.8-7.7); NEUTROPHILS % (AUTO) 95.3 % (40.0-70.0); PLATELET COUNT (AUTO) 90 K/uL (130-430); RED BLOOD CELL COUNT(AUTO) 3.16 MIL/uL (4.2-6.2); RED CELL DISTRIBUTION WIDTH 17.7 % (9.0-15.0)
[2023-08-19 06:28] LABS: ERYTHROCYTE SEDIMENTATION RATE 62 MM/HR (0-20)
[2023-08-19] MEDS: LEVOTHYROXINE SODIUM 0.025 MG TABLET PO SCH (06:56)
[2023-08-19 07:56] LABS: ALBUMIN 1.9 g/dL (3.4-4.8); CALCIUM 7.2 mg/dL (8.4-11.0); CREATININE 0.36 mg/dL (0.55-1.30); POTASSIUM 3.8 mmol/L (3.5-5.1); TOTAL BILIRUBIN 0.3 mg/dL (0.0-1.0); TOTAL PROTEIN, SERUM 6.9 g/dL (6.4-8.3)
[2023-08-19] MEDS: MIDODRINE HCL 5 MG TABLET (PROAMATINE) PO SCH (09:00)
[2023-08-19 09:01] LABS: WHITE BLOOD COUNT (AUTO) 12.2 K/uL (4.8-10.8)
[2023-08-19] MEDS: fentaNYL CITRATE/PF 100 MCG/2 ML AMP ONE (10:27)
[2023-08-19] MEDS: MIDAZOLAM HCL 5 MG/5 ML VIAL ONE (10:28)
[2023-08-19] MEDS: FLUDROCORTISONE ACETATE 0.1 MG TABLET( FLORINEF) PO SCH (15:30)
[2023-08-20] VITALS: BP_SYST 138; PULSE 77; RESP 16; TEMP 98.7; O2SAT 96
[2023-08-20 06:08] LABS: BASOPHILS % (AUTO) 0.1 % (0.0-2.0); HEMATOCRIT 23.1 % (36-48); HEMOGLOBIN 7.7 g/dL (12.0-16.0); LYMPHOCYTES # (AUTO) 0.5 K/uL (1.0-5.5); LYMPHOCYTES % (AUTO) 4.3 % (20.5-51.5); MEAN CORPUSCULAR HEMOGLOBIN 26 pg (27-31); MEAN CORPUSCULAR HGB CONC 33 % (32-36); MEAN CORPUSCULAR VOLUME 79 fL (79.0-98.0); MONOCYTES # (AUTO) 0.2 K/uL (0.0-1.0); NEUTROPHILS # (AUTO) 11.1 K/uL (1.8-7.7); NEUTROPHILS % (AUTO) 93.6 % (40.0-70.0); PLATELET COUNT (AUTO) 104 K/uL (130-430); RED BLOOD CELL COUNT(AUTO) 2.94 MIL/uL (4.2-6.2); RED CELL DISTRIBUTION WIDTH 17.8 % (9.0-15.0); WHITE BLOOD COUNT (AUTO) 11.8 K/uL (4.8-10.8)
[2023-08-20 06:34] LABS: CALCIUM 7.9 mg/dL (8.4-11.0); CREATININE 0.51 mg/dL (0.55-1.30)
[2023-08-20 07:57] LABS: POTASSIUM 2.9 mmol/L (3.5-5.1)
[2023-08-20 08:00] VITALS: BP_SYST 123; PULSE 80; RESP 16; TEMP 98.7; O2SAT 97
[2023-08-20] MEDS ORDERED: HYDROCORTISONE SOD SUCC 100 MG/2 ML VIAL IVP SCH (09:00)
[2023-08-20] MEDS: APIXABAN 2.5 MG TABLET PO SCH (09:17)
[2023-08-20] MEDS: DOCUSATE SODIUM 100 MG CAPSULE PO SCH (09:18)
[2023-08-20] MEDS: PANTOPRAZOLE SODIUM 40 MG TAB PO SCH (09:18)
[2023-08-20] MEDS: POTASSIUM CHLORIDE 60 MEQ, LIDOCAINE JECT 2% PF 100 MG 50 MG in NS 500 ML IV ONE (11:39)
[2023-08-20 16:00] VITALS: BP_SYST 136; PULSE 69; RESP 16; TEMP 97.7; O2SAT 100
[2023-08-20 17:31] VITALS: O2SAT 100
[2023-08-20 21:00] VITALS: BP_SYST 122; PULSE 72; RESP 16; TEMP 97.5; O2SAT 97
[2023-08-20] MEDS: HYDROCORTISONE SOD SUCC 100 MG/2 ML VIAL IVP SCH (23:42)
[2023-08-21] VITALS (7 sets, daily range): BP systolic 125–135; PULSE 62–90; RESP 16–18; TEMP 96.4–97.4; O2SAT 98–100
[2023-08-21 05:54] LABS: HEMATOCRIT 23.4 % (36-48); HEMOGLOBIN 7.9 g/dL (12.0-16.0); LYMPHOCYTES # (AUTO) 0.4 K/uL (1.0-5.5); LYMPHOCYTES % (AUTO) 5.7 % (20.5-51.5); MEAN CORPUSCULAR HEMOGLOBIN 27 pg (27-31); MEAN CORPUSCULAR HGB CONC 34 % (32-36); MEAN CORPUSCULAR VOLUME 79 fL (79.0-98.0); MONOCYTES # (AUTO) 0.2 K/uL (0.0-1.0); MONOCYTES % (AUTO) 2.4 % (1.7-9.3); NEUTROPHILS # (AUTO) 6.4 K/uL (1.8-7.7); NEUTROPHILS % (AUTO) 91.9 % (40.0-70.0); PLATELET COUNT (AUTO) 123 K/uL (130-430); RED BLOOD CELL COUNT(AUTO) 2.96 MIL/uL (4.2-6.2); RED CELL DISTRIBUTION WIDTH 17.8 % (9.0-15.0); WHITE BLOOD COUNT (AUTO) 6.9 K/uL (4.8-10.8)
[2023-08-21 06:18] LABS: CALCIUM 7.5 mg/dL (8.4-11.0); CREATININE 0.49 mg/dL (0.55-1.30)
[2023-08-21] MEDS: KCL 20 mEq in 100 mL (PREMIX) 100 ML IV SCH (10:41)
[2023-08-21] MEDS ORDERED: LEVO-62 PO (11:47)
[2023-08-21] MEDS ORDERED: LEVO25TA2 PO (11:48)
[2023-08-21] MEDS ORDERED: APIX2.5T PO (11:49)
[2023-08-21] MEDS ORDERED: PRED20TA PO (11:50)
[2023-08-21] MEDS ORDERED: FLOR.1 PO (11:51)
[2023-08-21] MEDS ORDERED: PRO40 PO (11:51)
[2023-08-21] MEDS: POTASSIUM CHLORIDE 20 MEQ TABLET.ER PO ONE (12:42)
[2023-08-21] MEDS ORDERED: levoFLOXacin 500 MG TABLET PO SCH (21:00)
[2023-08-22] MEDS ORDERED: DOXYCYCLINE HYCLATE 100 MG CAPSULE PO SCH ×2 (09:00)
== END 2023-08-21 16:40 | disposition home health service (06) | DRG 720 ==
LOC: SED 10:17 → SMU 12:09 → SIC 08-11 22:50 → STU 08-17 22:44 → SMU 08-19 22:34
PROVIDERS: ADMIT Student in an Organized Health Care Education/Training Program; ATTEND Student in an Organized Health Care Education/Training Program
DX: A41.9 Sepsis, unspecified organism (principal); R65.21 Severe sepsis with septic shock; D61.818 Other pancytopenia; D70.9 Neutropenia, unspecified; E87.1 Hypo-osmolality and hyponatremia; E27.40 Unspecified adrenocortical insufficiency; E11.9 Type 2 diabetes mellitus without complications; L03.116 Cellulitis of left lower limb; D50.9 Iron deficiency anemia, unspecified; Z20.822 Contact with and (suspected) exposure to COVID-19; M06.9 Rheumatoid arthritis, unspecified; R50.81 Fever presenting with conditions classified elsewhere; J84.9 Interstitial pulmonary disease, unspecified; E27.9 Disorder of adrenal gland, unspecified; E78.00 Pure hypercholesterolemia, unspecified; J10.1 Influenza due to other identified influenza virus with other respiratory manifestations; E87.6 Hypokalemia; Z86.718 Personal history of other venous thrombosis and embolism; Z79.01 Long term (current) use of anticoagulants; Z79.82 Long term (current) use of aspirin; Z79.899 Other long term (current) drug therapy
CPT/HCPCS: 36415; 71045; 71250-TC; 73590; 76376; 80048; 80053; 80202; 81000; 81001; 81015; 82533; 82607; 82728; 82746; 82948; 83037; 83540; 83550; 83605; 83735; 83880; 84100; 84443; 84484; 85007; 85025; 85027; 85610; 85651; 85730; 86038; 86431; 87040; 87081; 87420; 93005; 93306; 93312; 93970; 94640; 94760; 97110-GP; 97116-GP; 97163-GP; 97530-GO; 97530-GP; 99285; G0378; G9035; J0692; J1447; J1644; J1720; J2250; J2543; J3010; J3370; J3475; J3480; J3490; J7040; J7050; J7060

== ENCOUNTER 2023-09-04 10:22 | Emergency (ER) | payer MEDICAID ==
[~2023-09-04] VITALS: Ht 149.9 cm; Wt 45.4 kg
[~2023-09-04 10:22] MED LIST changes: +APIX2.5T PO; +ASPI-1393 PO; +FLOR.1 PO; +LEVO-62 PO; +LEVO25TA2 PO; -OFLO5DRO6 EACH EYE; +PRED20TA PO; +PRO40 PO; +ROSU20TA73 PO
[2023-09-04 10:35] VITALS: BP_SYST 107; PULSE 86; RESP 19; TEMP 98; O2SAT 96
[2023-09-04 11:53] LABS: BASOPHILS % (AUTO) 0.4 % (0.0-2.0); EOSINOPHILS # (AUTO) 0.2 K/uL (0.0-0.4); EOSINOPHILS % (AUTO) 2.8 % (0.0-4.0); HEMATOCRIT 29.9 % (36-48); HEMOGLOBIN 9.7 g/dL (12.0-16.0); LYMPHOCYTES # (AUTO) 0.9 K/uL (1.0-5.5); LYMPHOCYTES % (AUTO) 14.7 % (20.5-51.5); MEAN CORPUSCULAR HEMOGLOBIN 28 pg (27-31); MEAN CORPUSCULAR HGB CONC 33 % (32-36); MEAN CORPUSCULAR VOLUME 85 fL (79.0-98.0); MONOCYTES # (AUTO) 0.3 K/uL (0.0-1.0); MONOCYTES % (AUTO) 4.7 % (1.7-9.3); NEUTROPHILS % (AUTO) 77.4 % (40.0-70.0); PLATELET COUNT (AUTO) 176 K/uL (130-430); RED CELL DISTRIBUTION WIDTH 22.9 % (9.0-15.0); WHITE BLOOD COUNT (AUTO) 6.4 K/uL (4.8-10.8)
[2023-09-04 12:13] LABS: CALCIUM 8.2 mg/dL (8.4-11.0); CREATININE 0.65 mg/dL (0.55-1.30)
[2023-09-04 12:16] LABS: POTASSIUM 2.7 mmol/L (3.5-5.1)
[2023-09-04] MEDS: KCL 20 mEq in 100 mL (PREMIX) 100 ML IV ONE (13:02)
[2023-09-04] MEDS: POTASSIUM CHLORIDE 20 MEQ TABLET.ER PO ONE (13:03)
[2023-09-04] MEDS ORDERED: MAGNESIUM SULFATE 50 ML IV ONE (13:15)
[2023-09-04 15:03] VITALS: BP_SYST 124; PULSE 82; RESP 18; TEMP 98; O2SAT 97
== END 2023-09-04 15:02 | disposition home or self-care (01) ==
LOC: SED 10:22
DX: E87.6 Hypokalemia (principal); E11.9 Type 2 diabetes mellitus without complications; J44.9 Chronic obstructive pulmonary disease, unspecified; Z79.899 Other long term (current) drug therapy
CPT/HCPCS: 99285; 96365; 93971; 96366; 80048; 83735; 85025; 36415; 93005; J3480